=== PATIENT | male | born 1995 | race Caucasian/White ===

== ENCOUNTER 2021-12-28 15:03 | Emergency (ER) | payer OTHER ==
[~2021-12-28] VITALS: Ht 180.3 cm; Wt 75.0 kg
[2021-12-28 15:33] VITALS: BP 126/69
[2021-12-28] MEDS ORDERED: LIDOCAINE 1% 10 ML VIAL PERC ONE (16:15)
[2021-12-28] MEDS ORDERED: NEOMYCIN/BACITRACIN/POLYMYXIN B OINTMENT PACKET TP ONE (17:00)
== END 2021-12-28 17:36 | disposition home or self-care (01) ==
LOC: EMS 15:06
DX: S61.511A Laceration without foreign body of right wrist, initial encounter (principal); X58.XXXA Exposure to other specified factors, initial encounter; Y93.89 Activity, other specified; Y92.89 Other specified places as the place of occurrence of the external cause; Y99.8 Other external cause status
CPT/HCPCS: 99282; 12002; J3490